=== PATIENT | female | born 1995 | race Caucasian/White ===

== ENCOUNTER 2018-11-11 19:38 | Emergency (ER) | payer BC ==
--- NOTE | 2018-11-11 20:12 | ED Physician Documentation ---
PD HPI CHEST PAIN - Stated complaint Stated Complaint: CHEST TIGHTNESS/PALPITATIONS - Chief complaint Chief Complaint: Cardiac - History obtained from History obtained from: Patient - History of Present Illness Timing - onset: Other (For the last 2 days she has had underlying chest pressure which makes her anxious that is constant but then exacerbated by episodes where she develops a sensation of a skipped heartbeat and then briefly lightheadedness. Making her very anxious and she is a little dyspneic with it. She denies pedal edema or calf pain.) Review of Systems Constitutional: denies: Fever, Chills Nose: denies: Rhinorrhea / runny nose, Congestion Throat: denies: Sore throat Cardiac: reports: Chest pain / pressure, Palpitations. denies: Pedal edema, Calf pain Respiratory: reports: Dyspnea. denies: Cough PD PAST MEDICAL HISTORY - Past Medical History Past Medical History: No - Present Medications Home Medications: Ambulatory Orders Medication Instructions Recorded Confirmed No Known Home Medications 11/11/18 11/11/18 - Allergies Allergies/Adverse Reactions: Allergies Allergy/AdvReac Type Severity Reaction Status Date / Time No Known Drug Allergies Allergy Verified 11/11/18 19:44 - Social History Does the pt have substance abuse?: No - Family History Family history: reports: Non contributory PD ED PE NORMAL - Vitals Vital signs reviewed: Yes - General General: Alert and oriented X 3, No acute distress - HEENT HEENT: PERRL, EOMI - Neck Neck: Supple, no meningeal sign, No bony TTP - Cardiac Cardiac: RRR, No murmur - Respiratory Respiratory: No respiratory distress, Clear bilaterally - Abdomen Abdomen: Non tender - Extremities Extremities: No edema, No calf tenderness / cord - Neuro Neuro: Alert and oriented X 3, Normal speech - Psych Psych: Normal mood, Normal affect Results - Vitals Vitals: Vital Signs - 24 hr 11/11/18 11/11/18 11/11/18 19:41 20:07 20:44 Temperature 36.0 C L Heart Rate 69 60 Respiratory 18 12 Rate Blood Pressure 134/89 H 134/99 H Blood Pressure 126/98 H [Left] O2 Saturation 100 100 Oxygen O2 Source Room air - EKG (time done) 195 Rate: Rate (enter#) (67) Rhythm: NSR Tebbetts: Normal Intervals: Normal MD QRS: Normal Ischemia: Normal ST segments Computer interpretation: Agree with computer - Labs Labs: Laboratory Tests 11/11/18 11/11/18 11/11/18 20:20 20:20 20:20 WBC 7.3 RBC 4.18 L Hgb 13.4 Hct 39.1 MCV 93.5 MCH 32.0 H MCHC 34.3 RDW 12.7 Plt Count 300 MPV 8.6 Neut # (Auto) 3.4 Lymph # (Auto) 3.2 [place] # (Auto) 0.5 Eos # (Auto) 0.2 Baso # (Auto) 0.0 Absolute Nucleated RBC 0.00 Nucleated RBC % 0.1 Sodium 138 Potassium 3.6 Chloride 105 Carbon Dioxide 23 Anion Gap 10.0 BUN 16 Creatinine 0.8 Estimated GFR (MDRD) 87 L Glucose 97 Calcium 9.4 Total Bilirubin 0.4 AST 24 ALT 20 Alkaline Phosphatase 77 Troponin I < 0.04 Total Protein 7.5 Albumin 4.6 Globulin 2.9 Albumin/Globulin Ratio 1.6 Lipase 43 Urine Color Urine Clarity Urine pH Ur Specific [place] Urine Protein Urine Glucose (UA) Urine Ketones Urine Occult Blood Urine Nitrite Urine Bilirubin Urine Urobilinogen Ur Leukocyte Esterase Ur Microscopic Review Urine Culture Comments Urine HCG, Qual 11/11/18 20:20 WBC RBC Hgb Hct MCV MCH MCHC RDW Plt Count MPV Neut # (Auto) Lymph # (Auto) [place] # (Auto) Eos # (Auto) Baso # (Auto) Absolute Nucleated RBC Nucleated RBC % Sodium Potassium Chloride Carbon Dioxide Anion Gap BUN Creatinine Estimated GFR (MDRD) Glucose Calcium Total Bilirubin AST ALT Alkaline Phosphatase Troponin I Total Protein Albumin Globulin Albumin/Globulin Ratio Lipase Urine Color YELLOW Urine Clarity CLEAR Urine pH 7.5 Ur Specific [place] 1.010 Urine Protein NEGATIVE Urine Glucose (UA) NEGATIVE Urine Ketones NEGATIVE Urine Occult Blood NEGATIVE Urine Nitrite NEGATIVE Urine Bilirubin NEGATIVE Urine Urobilinogen 0.2 (NORMAL) Ur Leukocyte Esterase NEGATIVE Ur Microscopic Review NOT INDICATED Urine Culture Comments NOT INDICATED Urine HCG, Qual NEGATIVE PD MEDICAL DECISION MAKING - ED course ED course: 23-year-old woman with palpitations and chest pressure, that her symptoms correlate to occasional PVCs on the monitor. She has low normal potassium which is repleted orally and may be helpful. Departure - Departure Disposition: 01 Home, Self Care Clinical Impression: Chest pain Condition: Good Record reviewed to determine appropriate education?: Yes Instructions: Premature Ventricular Contract About Comments: Call your doctor to arrange a follow-up appointment, make the next available appointment. In the interim, return anytime if worse or if new symptoms develop. Your blood pressure was elevated today on check into the emergency department. This does not mean that you have hypertension, it is a common phenomenon to come to the emergency department and have elevated blood pressure. I recommend that you see your primary care physician within the week to have it rechecked when you are feeling better.
[2018-11-11 20:26] LABS: BASOPHILS % (AUTO) 0.7 %; BILIRUBIN,URINE NEGATIVE (NEGATIVE); EOSINOPHILS # (AUTO) 0.2 10^3/uL (0.0-0.7); EOSINOPHILS % (AUTO) 2.4 %; GLUCOSE, URINE (UA) NEGATIVE (NEGATIVE); HGB - HEMOGLOBIN 13.4 g/dL (12.0-16.0); KETONES,URINE (UA) NEGATIVE (NEGATIVE); LEUKOCYTE ESTERASE, URINE NEGATIVE (NEGATIVE); LYMPHOCYTES # (AUTO) 3.2 10^3/uL (1.5-3.5); MEAN CORPUSCULAR HGB CONC 34.3 g/dL (32.0-36.0); MEAN CORPUSCULAR VOLUME 93.5 fL (81.0-99.0); MEAN PLATELET VOLUME 8.6 fL (7.9-10.8); MONOCYTES # (AUTO) 0.5 10^3/uL (0.0-1.0); MONOCYTES % (AUTO) 6.7 %; NEUTROPHILS # (AUTO) 3.4 10^3/uL (1.5-6.6); NEUTROPHILS % (AUTO) 46.2 %; NITRITE,URINE NEGATIVE (NEGATIVE); OCCULT BLOOD,URINE NEGATIVE (NEGATIVE); PH,URINE 7.5 PH (5.0-7.5); PLT - PLATELET COUNT 300 10^3/uL (130-450); PROTEIN,URINE NEGATIVE (NEGATIVE); RED BLOOD COUNT 4.18 10^6/uL (4.20-5.40); RED CELL DISTRIBUTION WIDTH 12.7 % (12.0-15.0); UROBILINOGEN,URINE 0.2 (NORMAL) E.U./dL (NORMAL); WHITE BLOOD COUNT 7.3 x10^3/uL (4.8-10.8)
[2018-11-11 20:27] LABS: CLARITY,URINE CLEAR (CLEAR)
[2018-11-11 20:28] LABS: HCG UR QUAL NEGATIVE
[2018-11-11 20:40] LABS: ALBUMIN 4.6 g/dL (3.2-5.5); ALBUMIN/GLOBULIN RATIO 1.6 (1.0-2.2); BILIRUBIN,TOTAL 0.4 mg/dL (0.2-1.0); CALCIUM 9.4 mg/dL (8.5-10.3); CREATININE 0.8 mg/dL (0.4-1.0); TOTAL PROTEIN 7.5 g/dL (6.7-8.2)
--- NOTE | 2018-11-11 20:46 | XRAY Report ---
Reason: chest pain Procedure Date: 11/11/2018 Accession Number: [id number] / [id number] Procedure: XR - Chest 1 View X-Ray CPT Code: 09300 FULL RESULT: EXAM: CHEST RADIOGRAPHY EXAM DATE: 11/11/2018 08:25 PM. CLINICAL HISTORY: Chest pain. COMPARISON: None. TECHNIQUE: 1 view. FINDINGS: Lungs/Pleura: No focal opacities evident. No pleural effusion. No pneumothorax. Mediastinum: Within exam limitations, the cardiomediastinal contour is normal. Other: None. IMPRESSION: No acute findings. RADIA
[2018-11-11] MEDS ORDERED: POTASSIUM BICARB 25 MEQ TABLET PO STA (21:13)
[2018-11-11 21:17] VITALS: BP 108/97
== END 2018-11-11 21:21 | disposition home or self-care (01) ==
LOC: ED 19:38
DX: R07.9 Chest pain, unspecified (principal); I49.3 Ventricular premature depolarization; E87.6 Hypokalemia; R03.0 Elevated blood-pressure reading, without diagnosis of hypertension
CPT/HCPCS: 36415; 71045; 80053; 81003; 81025; 83690; 84484; 85025; 93005; 99283; 99284; A9270; 81001; 87086

== ENCOUNTER 2021-08-05 14:31 | Emergency (ER) | payer BC, OTHER ==
[2021-08-05 14:41] VITALS: BP 129/79
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
== END 2021-08-05 17:24 | disposition home or self-care (01) ==
LOC: ED 14:31
DX: F17.200 Nicotine dependence, unspecified, uncomplicated (principal); S80.02XA Contusion of left knee, initial encounter; S80.01XA Contusion of right knee, initial encounter; V09.20XA Pedestrian injured in traffic accident involving unspecified motor vehicles, initial encounter; Y93.H3 Activity, building and construction; Y92.488 Other paved roadways as the place of occurrence of the external cause; Y99.0 Civilian activity done for income or pay
CPT/HCPCS: 99283; 99284

== ENCOUNTER 2022-03-25 08:55 | Outpatient (CLI) | payer OTHER | END 2022-03-25 08:56 | disposition home or self-care (01) | LOC: NS 08:55 | PROVIDERS: ATTEND Nurse Practitioner Family | DX: Z71.3 Dietary counseling and surveillance (principal); K21.9 Gastro-esophageal reflux disease without esophagitis; E66.9 Obesity, unspecified; Z68.31 Body mass index [BMI] 31.0-31.9, adult | CPT/HCPCS: 97802 ==

== ENCOUNTER 2023-08-09 09:43 | Outpatient (CLI) | payer OTHER | END 2023-08-09 09:44 | disposition home or self-care (01) | LOC: LAB 09:43 | PROVIDERS: ATTEND Nurse Practitioner Obstetrics & Gynecology | DX: Z32.01 Encounter for pregnancy test, result positive (principal) | CPT/HCPCS: 36415; 84702 ==

== ENCOUNTER 2023-08-16 17:54 | Outpatient (CLI) | payer OTHER | END 2023-08-16 17:55 | disposition home or self-care (01) | LOC: LAB 17:54 | PROVIDERS: ATTEND Nurse Practitioner Obstetrics & Gynecology | DX: Z32.01 Encounter for pregnancy test, result positive (principal) | CPT/HCPCS: 36415; 84702 ==

== ENCOUNTER 2024-06-17 18:30 | Outpatient (CLI) | payer BC ==
--- NOTE | 2024-06-18 17:56 | Ultrasound Report ---
PROCEDURE: OB Anatomy Scan INDICATIONS: SUPERVISION OF OUTSIDE/PRIOR DATING DATA: Last menstrual period (LMP): 01/23/2024. LMP-based estimated date of delivery (ZEN): 10/29/2024. First dating scan (date and location): 04/26/2024. Estimated date of delivery (ZEN) from first dating scan: 10/29/2024. The below data below was generated using the working ZEN of 10/29/2024 TECHNIQUE: Real-time scanning was performed of the fetus, with image documentation and biometric measurements. Endovaginal scanning: Not performed. COMPARISON: None. FINDINGS: General: A single living intrauterine gestation is present. Presentation: Vertex Placenta: Placental position is anterior, without previa. Amniotic fluid index: 14.7 cm, within normal limits for gestational age. heart rate: 135 beats per minute. Maternal cervical canal: Closed and measures 4.7 cm long; normal length is 2.5 cm or more. biometrics: Biparietal diameter: 4.78 cm, 20 weeks, 3 days, 32.3%. Head circumference: 18.18 cm, 18 weeks, 3 days, 20.4% Abdominal circumference: 15.8 cm, 20 weeks, 5 days, 30.9% Femur length: 3.12 cm, 19 weeks, 5 days, 9.1% Estimated gestational age from initial scan: 20 weeks, 5 days Composite gestational age from present scan: 20 weeks, 6 days Estimated weight and percentile: 344 g, 18.3% Measurement variability in biometric dating: +/- 10 days from 12-20 weeks gestation, +/- 2 weeks from 20-30 weeks gestation, +/- 3 weeks at 30 weeks gestation or later. Anatomic survey: Neuro: Ventricles are normal at less than 10 mm. Cisterna magna is normal at 3-11 mm. Cerebellum i s normal in size and morphology. Nuchal skin fold: Normal at less than 6 mm between 14 and 20 weeks gestational age. Face: Nose and lips, facial profile are normal. Spine: No evidence for spina bifida. Heart: 4-chambered heart and ventricular outflow tracts are not well seen. Diaphragm: Not well seen. Stomach: Not well seen. Kidneys: No hydronephrosis. Normal is less than 5 mm in 2nd trimester, less than 7 mm in 3rd trimester. Cord: 3 vessel cord has orthotopic insertion. Bladder: Normal in size. Extremities: All 4 extremities are visualized. IMPRESSION: 1. Single live intrauterine gestation with fetus in vertex presentation. heart rate is 135 bpm. Normal ANUSHA of 14.7 cm. Cervix is closed and measures 4.7 cm in length. 2. Normal growth. Estimated weight is at 18.3%. Femur length is measured at 9.1%. 3. Four-chamber heart, ventricular outflow tracts, diaphragm and stomach are not well seen. Rest of t he exam is unremarkable. Reviewed by: Sherman Falcon MD on 06/18/2024 5:55 PM PDT Approved by: Sherman Falcon MD on 06/18/2024 5:55 PM PDT Station ID: [id number]
== END 2024-06-17 18:31 | disposition home or self-care (01) ==
LOC: DI 18:30
PROVIDERS: ATTEND Nurse Practitioner Obstetrics & Gynecology
DX: Z34.02 Encounter for supervision of normal first pregnancy, second trimester (principal); Z36.89 Encounter for other specified antenatal screening

== ENCOUNTER 2024-06-24 16:13 | Outpatient (CLI) | payer BC ==
--- NOTE | 2024-06-25 11:14 | Ultrasound Report ---
PROCEDURE: OB Follow up INDICATIONS: SUPERVISION OF OUTSIDE/PRIOR DATING DATA: Last menstrual period (LMP): 01/23/2024. LMP-based estimated date of delivery (ZEN): 10/29/2024. First dating scan (date and location): 04/26/2024. Estimated date of delivery (ZEN) from first dating scan: 10/29/2024. The below data below was generated using the working ZEN of 10/29/2024 TECHNIQUE: Real-time scanning was performed of the fetus, with image documentation and biometric measurements. Endovaginal scanning: Not performed. COMPARISON: 06/17/2024 FINDINGS: General: A single living intrauterine gestation is present. Presentation: Breech Placenta: Placental position is anterior, without previa. Amniotic fluid index: 15.3 cm, which is at 57.6% for gestational age. heart rate: 147 beats per minute. Maternal cervical canal: Closed and measures 6.3 cm long; normal length is 2.5 cm or more. Estimated gestational age from initial scan: 21 weeks, 6 days Other: Four-chamber heart, and ventricular outflow tracts are visualized and are within normal limits . diaphragm is also seen and is within normal limits. IMPRESSION: 1. Single live intrauterine gestation with fetus in breech presentation. heart rate is 147 bpm. Normal ANUSHA at 15.3 cm. Cervix is closed and measures 6.3 cm in length. 2. cardiac structures and chest are visualized and are within normal limits on the curren t study. Reviewed by: Sherman Falcon MD on 06/25/2024 11:13 AM PDT Approved by: Sherman Falcon MD on 06/25/2024 11:13 AM PDT Station ID: [id number]
== END 2024-06-24 16:14 | disposition home or self-care (01) ==
LOC: DI 16:13
PROVIDERS: ATTEND Nurse Practitioner Obstetrics & Gynecology
DX: O32.1XX0 Maternal care for breech presentation, not applicable or unspecified (principal); Z3A.21 21 weeks gestation of pregnancy; Z36.89 Encounter for other specified antenatal screening

== ENCOUNTER 2024-07-26 08:34 | Outpatient (CLI) | payer BC ==
[2024-07-26 09:47] LABS: HCT - HEMATOCRIT 34.4 % (37.0-47.0); HGB - HEMOGLOBIN 11.6 g/dL (12.0-16.0); MEAN CORPUSCULAR HEMOGLOBIN 30.9 pg (27.0-31.0); MEAN CORPUSCULAR HGB CONC 33.7 g/dL (32.0-36.0); MEAN CORPUSCULAR VOLUME 91.5 fL (81.0-99.0); MEAN PLATELET VOLUME 9.9 fL (7.9-10.8); RED BLOOD COUNT 3.76 10^6/uL (4.20-5.40); RED CELL DISTRIBUTION WIDTH 12.3 % (12.0-15.0); WHITE BLOOD COUNT 9.1 x10^3/uL (4.8-10.8)
== END 2024-07-26 08:35 | disposition home or self-care (01) ==
LOC: LAB 08:34
PROVIDERS: ATTEND Nurse Practitioner Obstetrics & Gynecology
DX: Z36.9 Encounter for antenatal screening, unspecified (principal)
CPT/HCPCS: 36415; 82950; 85027

== ENCOUNTER 2024-11-04 07:48 | Inpatient (IN) ==
[2024-11-04] MEDS ORDERED: OXYTOCIN 10 UNIT/ML VIAL IM PRN (08:56)
[2024-11-04] MEDS ORDERED: SODIUM CHLORIDE FLUSH 0.9% 10 ML SYRINGE IVP PRN (08:56)
[2024-11-04] MEDS ORDERED: TRANEXAMIC ACID IN NACL 1,000 MG/100 ML BAG IV PRN (08:56)
[2024-11-04] MEDS ORDERED: lidocaine 1% 20 ML MDV ID PRN (08:56)
[2024-11-04] MEDS ORDERED: LABETALOL 20 MG/4 ML SYRINGE IVP PRN ×3 (08:56)
[2024-11-04] MEDS ORDERED: miSOPROStoL 200 MCG TABLET BC PRN (08:56)
[2024-11-04] MEDS ORDERED: LACTATED RINGERS 1,000 ML IV PRN (08:56)
[2024-11-04] MEDS ORDERED: hydrALAZINE INJ 20 MG/ML VIAL IVP PRN ×2 (08:56)
[2024-11-04] MEDS ORDERED: NIFEdipine 10 MG CAPSULE PO PRN (08:56)
[2024-11-04] MEDS ORDERED: CARBOPROST TROMETHAMINE 250 MCG/ML VIAL IM PRN (08:56)
[2024-11-04] MEDS ORDERED: OXYTOCIN/SODIUM CHLORIDE 500 ML IV PRN (08:56)
[2024-11-04] MEDS ORDERED: METHYLERGONOVINE 0.2 MG/ML VIAL IM PRN (08:56)
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
[2024-11-04 09:17] LABS: BASOPHILS % (AUTO) 0.2 %; EOSINOPHILS # (AUTO) 0.1 10^3/uL (0.0-0.7); EOSINOPHILS % (AUTO) 0.5 %; HCT - HEMATOCRIT 38.1 % (37.0-47.0); HGB - HEMOGLOBIN 12.8 g/dL (12.0-16.0); LYMPHOCYTES # (AUTO) 2.1 10^3/uL (1.5-3.5); LYMPHOCYTES % (AUTO) 14.7 %; MEAN CORPUSCULAR HEMOGLOBIN 30.3 pg (27.0-31.0); MEAN CORPUSCULAR HGB CONC 33.6 g/dL (32.0-36.0); MEAN CORPUSCULAR VOLUME 90.1 fL (81.0-99.0); MEAN PLATELET VOLUME 11.2 fL (7.9-10.8); MONOCYTES # (AUTO) 0.9 10^3/uL (0.0-1.0); MONOCYTES % (AUTO) 6.5 %; NEUTROPHILS # (AUTO) 10.8 10^3/uL (1.5-6.6); NEUTROPHILS % (AUTO) 77.5 %; PLT - PLATELET COUNT 344 10^3/uL (130-450); RED BLOOD COUNT 4.23 10^6/uL (4.20-5.40); RED CELL DISTRIBUTION WIDTH 12.6 % (12.0-15.0)
[2024-11-04] MEDS: miSOPROStoL 100 MCG TABLET BC SCH (09:20)
[2024-11-04] MEDS: SODIUM CHLORIDE FLUSH 0.9% 10 ML SYRINGE IVP SCH (10:52)
--- NOTE | 2024-11-04 11:07 | PHARMACY PROGRESS NOTE ---
Best Possible Medication History Admit Date and Time: 11/04/24 [id number] Home Medications Medication Instructions Recorded Confirmed Type acetaminophen 325 mg tablet 325 mg PO Q6H PRN pain 09/27/24 11/04/24 History (Tylenol) vitamins no.159-iron 1 tab PO DAILY 09/27/24 11/04/24 History fumarate 28 mg-folic acid 800 mcg tablet ( Vitamin) Processed by: Pharmacy (Medication reconciliation completed by corn lab technicianColin) Medications reviewed in ED?: No Medication History completed: Yes Patient Interview: Completed Secondary Source(s): Insurance records [facility] Statement: As the person ultimately responsible for medication therapy, providers are able to order a medication from an existing home medication list in [facility] via the "Reconcile Routine" prior to Confirmation of that medication by child support agent. Such practice is discouraged except when the physician, in their clinical judgment, deems that a medical need exists for a medication without regard to previous use.
[2024-11-04] MEDS: LACTATED RINGERS 1,000 ML IV SCH (13:30)
[2024-11-04] MEDS: OXYTOCIN/SODIUM CHLORIDE 500 ML IV SCH (13:30)
[2024-11-04] MEDS: LACTATED RINGERS 1,000 ML IV PRN ×2 (13:50→16:00)
--- NOTE | 2024-11-04 14:27 | PROVIDER PROGRESS NOTE ---
Labor Progress Note Vaginal Exam Dilation (in cm): 2.5 Effacement (%): 70 Station: -3 Labor Progress Note Labor Progress Note/Additional Text: @ 1245pm 11/04/2024 S: Mostly comfortable, resting. O: FHR 140's , prolonged decelerations resolved to baseline, mostly occurring when voiding. Otherwise moderate variability +accelerations, irregular contractions after miso. SVE /-3, vertex. A: 28yo @ 40+6 wks gestation by 8wk U/S S/P 3 hour following single dose of 50mcg BC misoprostol Postdates GBS negative P: continuous monitoring Discussed not a safe to place another misoprostol. Discussed options. Membrane sweeping completed with nitrous, tolerated well. Epidural when desired. Will initiate pitocin when can safely do so/ 4 hours after misoprostol. May consider miles bulb if baby doesn't tolerate pitocin or if minimal cervical change. Anticipate .
[2024-11-04] MEDS ORDERED: LIDOCAINE 2%-EPI 1:100000 20 ML MDV ONE (15:47)
[2024-11-04] MEDS ORDERED: ROPIVACAINE 0.2% 200 MG/100 ML BAG EP ONE (15:48)
[2024-11-04] MEDS ORDERED: NALOXONE 0.4 MG/ML VIAL IVP PRN (16:23)
[2024-11-04] MEDS ORDERED: ROPIVACAINE 0.2% 200 MG/100 ML BAG EP PRN (16:23)
--- NOTE | 2024-11-04 16:23 | ANESTHESIA PROCEDURE NOTE ---
Pre-Anesthesia VS, & Labs Diagnosis Surgical Diagnosis:: Active labor Procedure Procedure: Vaginal delivery Vitals Vital Signs: Pulse Resp BP 117 H 16 129/81 11/04/24 08:06 11/04/24 08:06 11/04/24 08:06 Height (in): 5 ft 7 in Weight (kg): 98 kg Body Mass Index: 33.8 BMI Classification: Obese NPO NPO: Other (clear liquids during labor) Is Patient ?: Yes Lab Results Current Lab Results: Laboratory Tests 11/04/24 09:55: Blood Type Recheck O POSITIVE 11/04/24 08:20: WBC 14.0 H, RBC 4.23, Hgb 12.8, Hct 38.1, MCV 90.1, MCH 30.3, MCHC 33.6, RDW 12.6, Plt Count 344, MPV 11.2 H, Neut # (Auto) 10.8 H, Lymph # (Auto) 2.1, Gordon # (Auto) 0.9, Eos # (Auto) 0.1, Baso # (Auto) 0.0, Absolute Nucleated RBC 0.00, Nucleated RBC % 0.0, Blood Type O POSITIVE, Antibody Screen NEGATIVE Lab results reviewed: Yes 11/04/24 08:20 Meds/Allgy Home Medications Ambulatory Orders Medication Instructions Recorded Confirmed acetaminophen 325 mg tablet 325 mg PO Q6H PRN pain 09/27/24 11/04/24 (Tylenol) vitamins no.159-iron 1 tab PO DAILY 09/27/24 11/04/24 fumarate 28 mg-folic acid 800 mcg tablet ( Vitamin) Allergies Allergies Allergy/AdvReac Type Severity Reaction Status Date / Time No Known Drug Allergies Allergy Verified 11/01/24 10:27 PFSH Family History Family History (Updated 09/27/24 @ 09:20 by Lesley Bernard MA) Maternal grandfather Heart disease High blood pressure Father Alcoholism Maternal grandmother Lung cancer Skin cancer Sister Skin cancer Social History Social History (Updated 09/27/24 @ 09:18 by Lesley Bernard MA) Smoking Status: Never smoker Do you dip or chew tobacco?: No Do you vape?: No History of Abuse: No Frequency: Occasional ETOH Use Details: stopped with Substance Use: denies use POLST Patient has POLST: No Anesthesia Exam (Expanded) Exam General: Alert, Oriented x3 and Cooperative Dental: WNL Mouth Openin Fingerbreadth Neck Mobility: Normal Mallampati classification: II Thyromental Distance: 4-6 cm Mental/Cognitive Status: Alert/Oriented X3 and Normal for patient Plan Plan Anesthesia Type: Epidural Consent for Procedure(s) Verified and Reviewed: Yes Code Status: Attempt Resuscitation ASA Classification ASA classification: 2-Mild systemic disease Is this case an emergency?: No
--- NOTE | 2024-11-04 17:19 | PROVIDER PROGRESS NOTE ---
Labor Progress Note Labor Progress Note Labor Progress Note/Additional Text: S: VERY comfortable with the epidural. Her partner is supportive at the bedside. Agreeable to AROM and continuing oxytocin. Discussed risk vs benefit of AROM O: FHR 140, 4/70/-2, VTX, Head well applied to cervix. discussed AROM vs cont inued pitocin and episodes of occasional of distress. Pitocin decreased to 2mu/min with last deceleration. Nursing staff great with communication of management and wellbeing. FHT 140's, moderate variability, + accelerations, irregular variables and few prolonged decelerations with resolution to baseline. A: 28yo @ 40+6 wks gestation by 8wk U/S hypotensive episode with associated decelerations in heart rate. Status post 50mcg misoprostol, Now on 2mu/min of oxytocin AROM, small amount of clear fluid. Postdates GBS negative P: Anesthesia notified of multiple doses of ephedrine given for hypotensive episodes Will encouraged rotation in bed on peanut ball after patient is comfortable with epidural. Anticipate .
[2024-11-04] MEDS: ePHEDrine 50 MG/ML VIAL IVP PRN (17:29)
[2024-11-04] MEDS: CALCIUM CARBONATE CHEW 500 MG TABLET PO PRN (18:24)
[2024-11-04] MEDS: ONDANSETRON 4 MG/2 ML VIAL IVP PRN (19:55)
[2024-11-05] MEDS ORDERED: hydrALAZINE INJ 20 MG/ML VIAL IVP PRN ×2 (00:48)
[2024-11-05] MEDS ORDERED: NIFEdipine 10 MG CAPSULE PO PRN (00:48)
[2024-11-05] MEDS ORDERED: NALOXONE 0.4 MG/ML VIAL IVP PRN (00:48)
[2024-11-05] MEDS ORDERED: SIMETHICONE CHEW 80 MG TABLET PO PRN (00:48)
[2024-11-05] MEDS ORDERED: LABETALOL 20 MG/4 ML SYRINGE IVP PRN ×2 (00:48)
[2024-11-05] MEDS ORDERED: LABETALOL 5 MG/1 ML 20 ML MDV IVP PRN (00:48)
[2024-11-05] MEDS ORDERED: OXYTOCIN/SODIUM CHLORIDE 500 ML IV PRN (00:48)
[2024-11-05] MEDS ORDERED: WITCH HAZEL/GLYCERIN 1 PAD TOP PRN (00:54)
--- NOTE | 2024-11-05 01:05 | DELIVERY NOTE ---
Delivery Note Delivery Comments (Free Text/Narrative) Delivery Comments (Free Text/Narrative): This 28 -year-old, G 2 P 0010 @ 40+6 weeks gestation by 8 week ultrasound/ LMP presented 11/04/2024 @ 0800 for scheduled induction of labor. Cervix was 2/60/-3 and Vertex presentation by natalia's and exam. Eric score 5. GBS negative. FHR pattern demonstrated 125-145 baseline in a primarily category I and intermittent category II tracing prior to second stage. Received misoprostol 50mcg BC x1 followed by a oxytocin, maximum infusion rate 4mu/min. Normal labor course. Epidural placed upon maternal request. AROM occurred @ 1750 (clear fluid). She then progressed to complete/complete @ 2339, and second stage began. : Normal spontaneous vaginal delivery of a viable male on 11/05/2024 @ 0011. No nuchal cord. The was placed on maternal abdomen, stimulated, dried and placed skin to skin. Apgars 9 & 9 @ 1 & 5 minutes. The umbilical cord was allowed to stop pulsating at which time it was doubly clamped by delivering provider and cut by FOB. 3VC. Cord blood was obtained. Fundal massage and gently cord traction applied for active management of the third stage, placenta delivered spontaneously and intact and appeared normal @ X. EBL 500. Placenta was WAS NOT sent to pathology. Pitocin administered via IV for hemostasis and allowed to run freely. Uterine massage was performed until uterus was deemed firm. Inspection of the perineum noted a second degree perineal laceration. Repaired under epidural anesthesia with 3-0 vicryl rapide, repaired in standards fashion under sterile conditions. Upon re-inspection the patient was hemostatic. Uterus again massaged and found to be firm. Needle and sponge counts were correct. Uterine fundus firm and there is no excessive bleeding. Tissues well approximated. Skin to skin initiated. Family bonding well. Both mother and baby are in stable condition.
[2024-11-05] MEDS: ACETAMINOPHEN 500 MG TABLET PO PRN (01:13)
[2024-11-05] MEDS: IBUPROFEN 600 MG TABLET PO PRN (01:14)
[2024-11-05] MEDS: DOCUSATE SODIUM 100 MG CAPSULE PO SCH (09:49)
--- NOTE | 2024-11-05 10:20 | PROVIDER PROGRESS NOTE ---
Subjective Prog Note Date Prog Note Date: 11/05/24 Prog Note Time: 09:00 Subjective Subjective: Subjective: Patient reports she is doing well. Comfortable WITHOUT pain management Lochia appropriate. Denies heavy bleeding. Ambulating. Pelvic and abdominal pain well-controlled. Tolerating oral intake. Diet: Regular. Voiding without difficulty. Passing flatus. Denies BM. Patient is bonding with baby in room Breast feeding going well. Denies feeling lightheaded, dizzy or excessively fatigued. Objective General: Alert, oriented, no apparent distress. Cardiovascular: No edema. Regular rate. Regular rhythm. Lungs: No increased work of breathing. Abdomen: Uterus firm. Below umbilicus. No guarding or rebound tenderness. Extremities: No pain on palpation. Distal pulses intact. Assessment and Plan day 1. 28yo s/p on 11/05/2024 following IOL, Day of delivery. Doing well - Routine - Anticipate discharge tomorrow Current Medications Current Medications Current Medications: Current Medications Generic Name Dose Route Start Last Admin Trade Name Freq PRN Reason Stop Dose Admin Acetaminophen 1,000 mg 11/05/24 00:48 11/05/24 09:49 Acetaminophen 500 Mg Tablet PO 1,000 mg Q8HR PRN Administration Mild Pain or Fever>38C(100.4F) Calcium Carbonate/Glycine 1,000 mg 11/04/24 18:19 11/04/24 19:56 Calcium Carbonate Chew 500 Mg Tablet PO 500 mg BID PRN Administration heartburn Docusate Sodium 100 mg 11/05/24 09:00 11/05/24 09:49 Docusate Sodium 100 Mg Capsule PO 100 mg BID TEQUILA Administration Hydralazine HCl 5 - 20 mg 11/04/24 08:56 Hydralazine Inj 20 Mg/Ml Vial IVP Q20M PRN SBP >160 or DBP >110 Protocol Hydralazine HCl 10 mg 11/04/24 08:56 Hydralazine Inj 20 Mg/Ml Vial IVP 11/09/24 08:56 .ONCE PRN Step 9 of Labetalol protocol Protocol Hydralazine HCl 10 mg 11/05/24 00:48 Hydralazine Inj 20 Mg/Ml Vial IVP .ONCE PRN SBP> or= 160 OR DBP> or= 110 Protocol Hydralazine HCl 5 - 10 mg 11/05/24 00:48 Hydralazine Inj 20 Mg/Ml Vial IVP Q20M PRN SBP >=160 and/or DBP >=110 Protocol Hydrocortisone 1 applic 11/05/24 00:54 Hydrocortisone 1% Cream 28 Gm Tube TOP QID PRN Hemorrhoids Lactated Ringer's 1,000 mls @ 50 mls/hr 11/04/24 13:30 11/04/24 13:50 Lr IV 50 mls/hr .Q20H PRN Administration pitocin Ibuprofen 600 mg 11/05/24 00:48 11/05/24 07:57 Ibuprofen 600 Mg Tablet PO 600 mg Q6HR PRN Administration Moderate Pain (Level 4-6) Labetalol HCl 20 - 80 mg 11/04/24 08:56 Labetalol 20 Mg/4 Ml Syringe IVP Q10M PRN SBP >160 or DBP >110 Protocol Labetalol HCl 20 mg 11/04/24 08:56 Labetalol 20 Mg/4 Ml Syringe IVP 11/09/24 08:56 .ONCE PRN Step 9 of nifedipine protocol Protocol Labetalol HCl 40 mg 11/04/24 08:56 Labetalol 20 Mg/4 Ml Syringe IVP 11/09/24 08:56 .ONCE PRN Step 9 of hydrALAZine protocol Protocol Labetalol HCl 20 - 80 mg 11/05/24 00:48 Labetalol 5 Mg/1 Ml 20 Ml Mdv IVP Q10M PRN SBP> or= 160 OR DBP> or= 110 Protocol Labetalol HCl 20 - 40 mg 11/05/24 00:48 Labetalol 20 Mg/4 Ml Syringe IVP Q10M PRN SBP> or= 160 OR DBP> or= 110 Protocol Labetalol HCl 20 mg 11/05/24 00:48 Labetalol 20 Mg/4 Ml Syringe IVP .ONCE PRN SBP >=160 and/or DBP >=110 Protocol Nifedipine 10 - 20 mg 11/04/24 08:56 Nifedipine 10 Mg Capsule PO Q20M PRN SBP >160 or DBP >110 Protocol Nifedipine 10 - 20 mg 11/05/24 00:48 Nifedipine 10 Mg Capsule PO Q20M PRN SBP >=160 and/or DBP >=110 Protocol Ondansetron HCl 4 mg 11/04/24 16:23 11/04/24 19:55 Ondansetron 4 Mg/2 Ml Vial IVP 4 mg Q6HR PRN Administration Nausea / Vomiting Simethicone 80 mg 11/05/24 00:48 Simethicone Chew 80 Mg Tablet PO TID PRN Gas Sodium Chloride 10 ml 11/04/24 08:56 Sodium Chloride Flush 0.9% 10 Ml Syringe IVP PRN PRN NEEDED PER PROVIDER ORDERS Witch Radha/Glycerin 1 pad 11/05/24 00:54 Witch Radha/Glycerin 1 Pad TOP PRN PRN ITCHING Objective Vital Signs/Intake & Output Vital Signs: Vital Signs x48h Temp Pulse Resp BP Pulse Ox 11/05/24 07:36 36.7 C 71 16 113/59 L 11/05/24 03:58 65 14 108/51 L 97 11/05/24 03:00 36.6 C 77 106/58 L Intake & Output: Intake & Output 11/02/24 11/03/24 11/04/24 11/05/24 23:59 23:59 23:59 23:59 Intake Total 1079 / 1079 484 / 484 Output Total 1000 / 1000 300 / 300 Balance 79 / 79 184 / 184 Weight (kg) 216 lb 0.848 oz Lab Results 11/04/24 08:20 Assessment/Plan Problem List (1) care and examination of lactating mother:
[2024-11-05 16:16] VITALS: O2SAT 100
--- NOTE | 2024-11-06 03:29 | Discharge Summary ---
Discharge Summary Admit Date: 11/04/24 Discharge Date: 11/06/24 HPI History of Present Illness: Date of Admission: 11/04/2024 Date of Discharge: 11/06/2024 Diagnosis on admission: 28 yo @ 40+6 weeks gestation by 8 wk U/S Early labor FHR 140 Cat I GBS NEG Diagnosis on Discharge 28 yo ppd #1 s/p 11/05/2024 @0011 Physical exam: Normocephalic, atraumatic Heart RRR w/o M/G/R Lungs CTAB Normal uterine involution, FF below umbilicus Small/ scant rubra bleeding perineal discomfort. Bilateral LE's trace edema Mood is good. Brief History: She is a patient of [facility] who presented on 11/04/2024 for postdates induction of labor. Adequate epidural anesthesia. She spontaneously delivered a viable male infant apgars 8 and 9 at 1 and 5 minutes respectively. EBL 500 ml. Second degree laceration with repair. She has been doing well in her course. She is ambulating and tolerating a regular diet. She is urinating without difficulty and her lochia is normal. Her pain is well controlled without narcotic management. She will be discharged to home today on day one and encouraged IBU, tylenol and stool softeners PRN. She intends to follow up with [facility] in 1 week for telehealth. She has been given precautions to call if she has any new or worsening sx such as fevers, chills, abdominal pain, increasing bleeding, or foul smelling vaginal lochia. preeclamptic precautions reviewed as well. ALLERGIES Allergies Allergy/AdvReac Type Severity Reaction Status Date / Time No Known Drug Allergies Allergy Verified 11/01/24 10:27 MEDICATIONS Ambulatory Orders Medication Instructions Recorded Confirmed acetaminophen 325 mg tablet 325 mg PO Q6H PRN pain 09/27/24 11/04/24 (Tylenol) vitamins no.159-iron 1 tab PO DAILY 09/27/24 11/04/24 fumarate 28 mg-folic acid 800 mcg tablet ( Vitamin) LABS 11/04/24 08:20 Discharge Plan Discharge Prescriptions: No Action Vitamin 28 mg iron- 800 mcg tablet 1 tab PO DAILY acetaminophen [Tylenol] 325 mg tablet 325 mg PO Q6H PRN (Reason: pain) Print Language: Russian
[2024-11-06] MEDS: HYDROCORTISONE 1% CREAM 28 GM TUBE TOP PRN (08:48)
--- NOTE | 2024-11-06 11:35 | Labor Flowsheet ---
Labor Flowsheet Datetime Report Generated by CPN: 11/06/2024 11:35 Datetime: 11/06/2024 07:33 VITAL SIGNS NBP Sys/Joann/Mean (mmHg): 112 : 60 : 73 Pulse: 82 Datetime: 11/06/2024 04:04 SpO2 (%): 100 Datetime: 11/05/2024 00:26 Temperature (C): 37.2 Datetime: 11/05/2024 00:13 Medication Comments: open pit Datetime: 11/05/2024 00:09 LaborFlag: Labor Datetime: 11/05/2024 00:00 Pushing Position: Pushing with Contractions; Pushing Lithotomy Pushing Progress: Descent with Pushing; Perineal Bulging; Presenting Part Visible Datetime: 11/04/2024 23:45 STAGE 2 Pushing: Coached on Pushing Datetime: 11/04/2024 23:39 VAGINAL EXAM Dilatation (cm): 10.0 Effacement (%): 100 Vaginal Exam Comments: complete Patient Care Comments: Liithotomy Datetime: 11/04/2024 23:36 I/O Interventions: Barkley Discontinued Datetime: 11/04/2024 23:03 Patient Position/Activity: Right Lateral; Semi-Fowlers Datetime: 11/04/2024 23:00 UTERINE ACTIVITY Monitor Mode: External Frequency (min): 1-4 Quality: Mild Duration (sec): 60-90 Pattern: Normal: <= 5 Contractions in 10 Minutes Resting Tone (Palpate): Relaxed ASSESSMENT A Monitor Mode: Telemetry FHR Baseline Rate : 125 Variability: Moderate 6-25 bpm Accelerations: 15X15 Decelerations: Variable Category: Category II Datetime: 11/04/2024 22:58 Station: 1 Cervix, Consistency: Soft Datetime: 11/04/2024 22:56 Pain Type: Pressure COMMUNICATION Communication: Provider at Bedside Datetime: 11/04/2024 22:00 Contraction Comments: coupling and tripling noted Datetime: 11/04/2024 21:42 Communication Comments: POC d/w pt, SVE planned for 2300. Datetime: 11/04/2024 21:17 Notification Reason: Status Update Datetime: 11/04/2024 21:14 PATIENT CARE IV/Blood Work: IV Bolus Started; IV Bolus Given ml @ 250 Datetime: 11/04/2024 21:12 MEDICATIONS Pitocin (milliunits): Discontinued Datetime: 11/04/2024 21:00 Comments: audible FHR 100-110, indeterminate of decels Datetime: 11/04/2024 20:15 Monitor Interventions for UA: Kamaili Adjusted Datetime: 11/04/2024 19:59 Antiemetics/Antacids: Zofran (mg) @ 2 Datetime: 11/04/2024 19:48 Membrane Comments: replaced monitors Datetime: 11/04/2024 19:30 MATERNAL ASSESSMENT Level of Consciousness: Alert DTR's/Clonus: No Clonus Headache: Denies Breath Sounds, Left: Clear and Equal Breath Sounds, Right: Clear and Equal Nausea/Vomiting: Denies RUQ Epigastric Pain: Denies Datetime: 11/04/2024 19:28 Provider Reviewed Strip: Yes Datetime: 11/04/2024 19:27 PAIN Pain Scale: 0 Anesthesia Level Check: T10- Umbilicus Datetime: 11/04/2024 19:24 Exam by: Dania Ruiz CNM Datetime: 11/04/2024 19:00 Pitocin Checklist: At Least 1 Acceleration of 15 bpm x 15 Seconds in 30 Minutes or Adequate Variabi lity; No More than 1 Late Deceleration Occurred in Past 30 Minutes; No More than 2 Variable Decelerat ions > 60 Seconds in Duration and decreasing >60 bpm in 30 minutes; No More than 5 Uterine Contractio ns in 10 Minutes for any 20 Minute Interval; Uterus Palpates Soft between Contractions Datetime: 11/04/2024 18:28 Hygiene: Lila Care; Underpad Changed Datetime: 11/04/2024 17:50 Membrane Status: Ruptured Membranes Rupture Method: Artificial Amniotic Fluid Color: Clear Amniotic Fluid Amount: Moderate Datetime: 11/04/2024 17:13 Actions for Decelerations: IV Bolus Datetime: 11/04/2024 16:04 ANESTHESIA Epidural Procedure: Test Dose Datetime: 11/04/2024 15:53 PROCEDURE TIME OUT Procedure Verify: Correct Patient Identity; Correct Side and Site are Marked; Accurate Procedure Co nsent Form; Agreement on Procedure to be Done; Correct Patient Position; Relevant Images and Results are Properly Labeled and Displayed; Addressed Need to Administer Antibiotics or Fluids for Irrigation ; Safety Precautions Based on Patient History or Medication Use Datetime: 11/04/2024 10:38 Provider Notified (Name): Pita B CNM Datetime: 11/04/2024 09:20 Cervical Ripening Agents: Cytotec @ Datetime: 11/04/2024 08:59 Membranes Ruptured Date/Time: 11/04/2024 17:50 Datetime: 11/04/2024 08:40 Cervix, Position: Anterior
== END 2024-11-06 11:34 | disposition home or self-care (01) | DRG 805 ==
LOC: WFO 07:48 → FBP 07:51
PROVIDERS: ADMIT Nurse Practitioner Obstetrics & Gynecology; ATTEND Nurse Practitioner
DX: O48.0 Post-term pregnancy; O76 Abnormality in fetal heart rate and rhythm complicating labor and delivery; O99.42 Diseases of the circulatory system complicating childbirth; Z3A.40 40 weeks gestation of pregnancy; O99.214 Obesity complicating childbirth; I95.9 Hypotension, unspecified; O70.1 Second degree perineal laceration during delivery; Z37.0 Single live birth